=== PATIENT | male | born 1970 | race Caucasian/White ===

== ENCOUNTER 2022-07-08 10:55 | Inpatient (IN) | payer MEDICARE, OTHER ==
[2022-07-08] MEDS ORDERED: Acetaminophen 500 MG Tab PO ONE (11:22)
[2022-07-08 11:36] LABS: ESTIMATED GFR 61 mL/min (>60)
[2022-07-08] MEDS ORDERED: VANCOmycin 1 GM/200 ML 1 GM in Premix Bag 1 BAG IV ONE (11:50)
[2022-07-08] MEDS ORDERED: Piperacillin/Tazobactam 4.5 GM in Sodium Chloride 0.9% 100 ML IV STA (11:51)
[2022-07-08] MEDS: Sodium Chloride 0.9% 10 ML Syringe FLUSH PRN (12:10)
[2022-07-08] MEDS: Sodium Chloride 0.9% 1,000 ML IV SCH ×3 (12:15→16:00)
[2022-07-08] MEDS ORDERED: Ondansetron 4 MG/2 ML SDV IV PRN (15:42)
[2022-07-08] MEDS ORDERED: 50% Dextrose in Water 50 ML Syringe IVPUSH PRN (15:55)
[2022-07-08] MEDS ORDERED: Glucagon,Human Recombinant 1 MG Vial IM PRN (15:55)
[2022-07-08] MEDS ORDERED: Cyanocobalamin (Vitamin B12) 1,000 MCG/ML SDV SUBCUT SCH (16:00)
[2022-07-08] MEDS ORDERED: Piperacillin/Tazobactam 4.5 GM in Sodium Chloride 0.9% 100 ML IV SCH ×4 (17:00)
[2022-07-08] MEDS: Piperacillin/Tazobactam 4.5 GM in Sodium Chloride 0.9% 100 ML IV SCH ×2 (18:12→22:00)
[2022-07-08] MEDS: Insulin Lispro 100 Unit/ML 3 ML KwikPen SUBCUT SCH (18:19)
[2022-07-08] MEDS: Pantoprazole 40 MG Tab.CR PO SCH (18:24)
[2022-07-08] MEDS: Enoxaparin 40 MG/0.4 ML Syringe SUBCUT SCH (18:24)
[2022-07-08] MEDS: Acetaminophen 325 MG Tab PO PRN (19:28)
[2022-07-08] MEDS ORDERED: Sodium Chloride 0.9% 500 ML IV ONE (19:40)
[2022-07-08] MEDS ORDERED: Naproxen 500 MG Tab PO SCH (21:00)
[2022-07-08] MEDS: Ketorolac 30 MG/ML SDV IVPUSH PRN (21:03)
[2022-07-08] MEDS: Amitriptyline 25 MG Tab PO SCH (21:31)
[2022-07-08] MEDS: Gabapentin 600 MG Tab PO SCH (21:40)
[2022-07-08] MEDS: ClonazePAM 1 MG Tab PO SCH (21:40)
[2022-07-08] MEDS ORDERED: Sodium Chloride 0.9% 1,000 ML IV ONE (23:05)
[2022-07-09] MEDS: Sodium Chloride 0.9% 1,000 ML IV SCH ×3 (00:08→16:30)
[2022-07-09] MEDS ORDERED: VANCOmycin 1 GM/200 ML 1 GM in Premix Bag 1 BAG IV SCH (02:00)
[2022-07-09] MEDS: VANCOmycin 1 GM/200 ML 1 GM in Premix Bag 1 BAG IV SCH ×2 (02:37→13:59)
[2022-07-09] MEDS: Piperacillin/Tazobactam 4.5 GM in Sodium Chloride 0.9% 100 ML IV SCH ×4 (05:01→22:34)
[2022-07-09] MEDS: Pantoprazole 40 MG Tab.CR PO SCH ×2 (06:35→17:53)
[2022-07-09] MEDS: Levothyroxine 50 MCG Tab PO SCH (06:35)
[2022-07-09 07:06] LABS: ESTIMATED GFR 56 mL/min (>60)
[2022-07-09] MEDS: PALIPERIDONE 6 MG PO SCH ×2 (08:57→20:30)
[2022-07-09] MEDS ORDERED: Aspirin 81 MG Tab.EC PO SCH (09:00)
[2022-07-09] MEDS: Insulin Lispro 100 Unit/ML 3 ML KwikPen SUBCUT SCH ×3 (09:00→17:36)
[2022-07-09] MEDS: Bacitracin Oint 28.35 GM Tube TOP SCH (09:11)
[2022-07-09] MEDS: Tamsulosin 0.4 MG Cap.ER PO SCH ×2 (09:14→20:30)
[2022-07-09] MEDS: Venlafaxine 150 MG Cap.ER PO SCH (09:14)
[2022-07-09] MEDS: Allopurinol 100 MG Tab PO SCH (09:15)
[2022-07-09] MEDS: ClonazePAM 1 MG Tab PO SCH ×2 (09:23→20:28)
[2022-07-09] MEDS: Gabapentin 600 MG Tab PO SCH ×3 (09:23→20:29)
[2022-07-09] MEDS: Acetaminophen 325 MG Tab PO PRN ×3 (11:37→20:29)
[2022-07-09] MEDS: Ketorolac 30 MG/ML SDV IVPUSH PRN ×2 (14:39→22:32)
[2022-07-09] MEDS: Sodium Chloride 0.9% 10 ML Syringe FLUSH PRN (14:40)
[2022-07-09] MEDS: Metoprolol Succinate 25 MG Tab.ER PO SCH (15:51)
[2022-07-09] MEDS: Enoxaparin 40 MG/0.4 ML Syringe SUBCUT SCH (16:47)
[2022-07-09] MEDS: Amitriptyline 25 MG Tab PO SCH (20:30)
[2022-07-10] MEDS: Sodium Chloride 0.9% 1,000 ML IV SCH ×2 (00:28→08:36)
[2022-07-10] MEDS: Acetaminophen 325 MG Tab PO PRN ×3 (00:59→20:46)
[2022-07-10] MEDS: VANCOmycin 1 GM/200 ML 1 GM in Premix Bag 1 BAG IV SCH (01:00)
[2022-07-10] MEDS: Piperacillin/Tazobactam 4.5 GM in Sodium Chloride 0.9% 100 ML IV SCH ×4 (04:00→22:16)
[2022-07-10] MEDS: Pantoprazole 40 MG Tab.CR PO SCH ×2 (06:30→16:52)
[2022-07-10] MEDS: Levothyroxine 50 MCG Tab PO SCH (06:30)
[2022-07-10 06:38] LABS: ESTIMATED GFR 67 mL/min (>60)
[2022-07-10] MEDS: Insulin Lispro 100 Unit/ML 3 ML KwikPen SUBCUT SCH ×3 (08:39→17:07)
[2022-07-10] MEDS: Venlafaxine 150 MG Cap.ER PO SCH (08:46)
[2022-07-10] MEDS: Bacitracin Oint 28.35 GM Tube TOP SCH (08:46)
[2022-07-10] MEDS: Tamsulosin 0.4 MG Cap.ER PO SCH ×2 (08:47→20:45)
[2022-07-10] MEDS: Metoprolol Succinate 25 MG Tab.ER PO SCH (08:47)
[2022-07-10] MEDS: Gabapentin 600 MG Tab PO SCH ×3 (08:47→20:45)
[2022-07-10] MEDS: ClonazePAM 1 MG Tab PO SCH ×2 (08:47→20:45)
[2022-07-10] MEDS: Allopurinol 100 MG Tab PO SCH (08:50)
[2022-07-10] MEDS: Ketorolac 30 MG/ML SDV IVPUSH PRN (12:47)
[2022-07-10] MEDS ORDERED: Metoprolol Succinate 25 MG Tab.ER PO ONE (12:55)
[2022-07-10] MEDS: Sodium Chloride 0.9% 10 ML Syringe FLUSH PRN ×3 (15:10→23:00)
[2022-07-10] MEDS: Enoxaparin 40 MG/0.4 ML Syringe SUBCUT SCH (16:51)
[2022-07-10] MEDS: Amitriptyline 25 MG Tab PO SCH (20:44)
[2022-07-10] MEDS: PALIPERIDONE 6 MG PO SCH (20:45)
[2022-07-10] MEDS ORDERED: cefTRIAXone 1 GM Vial IVPUSH SCH (22:45)
[2022-07-11] MEDS: Levothyroxine 50 MCG Tab PO SCH (06:39)
[2022-07-11] MEDS: Pantoprazole 40 MG Tab.CR PO SCH ×2 (06:39→16:42)
[2022-07-11 06:52] LABS: ESTIMATED GFR 92 mL/min (>60)
[2022-07-11] MEDS: Insulin Lispro 100 Unit/ML 3 ML KwikPen SUBCUT SCH ×3 (08:22→18:36)
[2022-07-11] MEDS: Bacitracin Oint 28.35 GM Tube TOP SCH (08:26)
[2022-07-11] MEDS: Gabapentin 600 MG Tab PO SCH ×3 (08:27→20:11)
[2022-07-11] MEDS: Tamsulosin 0.4 MG Cap.ER PO SCH ×2 (08:27→20:11)
[2022-07-11] MEDS: ClonazePAM 1 MG Tab PO SCH ×2 (08:27→20:11)
[2022-07-11] MEDS: Metoprolol Succinate 50 MG Tab.ER PO SCH (08:27)
[2022-07-11] MEDS: Allopurinol 100 MG Tab PO SCH (08:28)
[2022-07-11] MEDS: Venlafaxine 150 MG Cap.ER PO SCH (08:30)
[2022-07-11] MEDS: Sodium Chloride 0.9% 10 ML Syringe FLUSH PRN (10:26)
[2022-07-11] MEDS: Ketorolac 30 MG/ML SDV IVPUSH PRN (16:32)
[2022-07-11] MEDS: Acetaminophen 325 MG Tab PO PRN (16:37)
[2022-07-11] MEDS: Enoxaparin 40 MG/0.4 ML Syringe SUBCUT SCH (16:43)
[2022-07-11] MEDS: Amitriptyline 25 MG Tab PO SCH (20:10)
[2022-07-11] MEDS: PALIPERIDONE 6 MG PO SCH (20:11)
[2022-07-12] MEDS: Sodium Chloride 0.9% 10 ML Syringe FLUSH PRN ×2 (02:09→10:11)
[2022-07-12] MEDS: Levothyroxine 50 MCG Tab PO SCH (06:30)
[2022-07-12] MEDS: Pantoprazole 40 MG Tab.CR PO SCH ×2 (07:01→17:54)
[2022-07-12] MEDS: Insulin Lispro 100 Unit/ML 3 ML KwikPen SUBCUT SCH ×2 (08:47→12:28)
[2022-07-12] MEDS: ClonazePAM 1 MG Tab PO SCH ×2 (08:53→20:04)
[2022-07-12] MEDS: Metoprolol Succinate 50 MG Tab.ER PO SCH (08:54)
[2022-07-12] MEDS: Venlafaxine 150 MG Cap.ER PO SCH (08:54)
[2022-07-12] MEDS: Tamsulosin 0.4 MG Cap.ER PO SCH ×2 (08:54→20:04)
[2022-07-12] MEDS: Gabapentin 600 MG Tab PO SCH ×3 (08:54→20:04)
[2022-07-12] MEDS: Bacitracin Oint 28.35 GM Tube TOP SCH (08:56)
[2022-07-12] MEDS: Allopurinol 100 MG Tab PO SCH (08:56)
[2022-07-12] MEDS: Enoxaparin 40 MG/0.4 ML Syringe SUBCUT SCH (16:34)
[2022-07-12] MEDS: Amitriptyline 25 MG Tab PO SCH (20:03)
[2022-07-12] MEDS: Metoprolol Succinate 100 MG Tab.ER PO SCH (20:04)
[2022-07-12] MEDS: PALIPERIDONE 6 MG PO SCH (20:04)
[2022-07-12] MEDS: Acetaminophen 325 MG Tab PO PRN (23:00)
[2022-07-13] MEDS: Sodium Chloride 0.9% 10 ML Syringe FLUSH PRN ×3 (02:30→17:46)
[2022-07-13] MEDS: Pantoprazole 40 MG Tab.CR PO SCH ×2 (06:52→17:15)
[2022-07-13] MEDS: Levothyroxine 50 MCG Tab PO SCH (06:53)
[2022-07-13] MEDS: Bacitracin Oint 28.35 GM Tube TOP SCH (08:36)
[2022-07-13] MEDS: Venlafaxine 150 MG Cap.ER PO SCH (08:36)
[2022-07-13] MEDS: ClonazePAM 1 MG Tab PO SCH ×2 (08:36→20:33)
[2022-07-13] MEDS: Tamsulosin 0.4 MG Cap.ER PO SCH ×2 (08:36→20:34)
[2022-07-13] MEDS: Gabapentin 600 MG Tab PO SCH ×3 (08:37→20:33)
[2022-07-13] MEDS: Allopurinol 100 MG Tab PO SCH (08:37)
[2022-07-13] MEDS ORDERED: CLOBETASOL 0.05% TOP SCH (10:00)
[2022-07-13 10:07] LABS: ESTIMATED GFR 92 mL/min (>60)
[2022-07-13] MEDS: Clobetasol 0.05% Crm 15 GM Tube TOP SCH ×2 (15:38→20:33)
[2022-07-13] MEDS: Enoxaparin 40 MG/0.4 ML Syringe SUBCUT SCH (16:44)
[2022-07-13] MEDS: Metoprolol Succinate 100 MG Tab.ER PO SCH (20:33)
[2022-07-13] MEDS: Amitriptyline 25 MG Tab PO SCH (20:33)
[2022-07-13] MEDS: PALIPERIDONE 6 MG PO SCH (20:34)
[2022-07-13] MEDS: Acetaminophen 325 MG Tab PO PRN (21:34)
[2022-07-14] MEDS: Sodium Chloride 0.9% 10 ML Syringe FLUSH PRN (02:45)
[2022-07-14] MEDS: Levothyroxine 50 MCG Tab PO SCH (05:31)
[2022-07-14] MEDS: Pantoprazole 40 MG Tab.CR PO SCH ×2 (06:32→16:35)
[2022-07-14] MEDS: Bacitracin Oint 28.35 GM Tube TOP SCH (08:54)
[2022-07-14] MEDS: Clobetasol 0.05% Crm 15 GM Tube TOP SCH ×2 (08:55→20:27)
[2022-07-14] MEDS: Venlafaxine 150 MG Cap.ER PO SCH (09:03)
[2022-07-14] MEDS: Allopurinol 100 MG Tab PO SCH (09:03)
[2022-07-14] MEDS: Tamsulosin 0.4 MG Cap.ER PO SCH ×2 (09:04→20:26)
[2022-07-14] MEDS: ClonazePAM 1 MG Tab PO SCH ×2 (09:07→20:39)
[2022-07-14] MEDS: Gabapentin 600 MG Tab PO SCH ×3 (09:07→20:26)
[2022-07-14] MEDS: Enoxaparin 40 MG/0.4 ML Syringe SUBCUT SCH (16:19)
[2022-07-14] MEDS: Acetaminophen 325 MG Tab PO PRN (17:42)
[2022-07-14] MEDS: Amitriptyline 25 MG Tab PO SCH (20:26)
[2022-07-14] MEDS: PALIPERIDONE 6 MG PO SCH (20:27)
[2022-07-14] MEDS: Metoprolol Succinate 100 MG Tab.ER PO SCH (20:28)
[2022-07-15] MEDS: Sodium Chloride 0.9% 10 ML Syringe FLUSH PRN ×3 (01:16→18:51)
[2022-07-15] MEDS: Levothyroxine 50 MCG Tab PO SCH (05:41)
[2022-07-15] MEDS: Pantoprazole 40 MG Tab.CR PO SCH ×2 (06:37→18:11)
[2022-07-15] MEDS: Gabapentin 600 MG Tab PO SCH ×3 (08:50→21:09)
[2022-07-15] MEDS: ClonazePAM 1 MG Tab PO SCH ×2 (08:50→21:09)
[2022-07-15] MEDS: Bacitracin Oint 28.35 GM Tube TOP SCH (08:55)
[2022-07-15] MEDS: Clobetasol 0.05% Crm 15 GM Tube TOP SCH ×2 (08:58→20:47)
[2022-07-15] MEDS: Allopurinol 100 MG Tab PO SCH (08:59)
[2022-07-15] MEDS: Tamsulosin 0.4 MG Cap.ER PO SCH ×2 (08:59→20:53)
[2022-07-15] MEDS: Venlafaxine 150 MG Cap.ER PO SCH (09:00)
[2022-07-15] MEDS: Enoxaparin 40 MG/0.4 ML Syringe SUBCUT SCH (15:15)
[2022-07-15] MEDS: Amitriptyline 25 MG Tab PO SCH (20:51)
[2022-07-15] MEDS: PALIPERIDONE 6 MG PO SCH (20:54)
[2022-07-15] MEDS: Metoprolol Succinate 100 MG Tab.ER PO SCH (21:01)
[2022-07-16] MEDS: Levothyroxine 50 MCG Tab PO SCH (06:09)
[2022-07-16] MEDS: Pantoprazole 40 MG Tab.CR PO SCH (06:50)
[2022-07-16] MEDS: Bacitracin Oint 28.35 GM Tube TOP SCH (08:42)
[2022-07-16] MEDS: Clobetasol 0.05% Crm 15 GM Tube TOP SCH (08:43)
[2022-07-16] MEDS: Venlafaxine 150 MG Cap.ER PO SCH (08:44)
[2022-07-16] MEDS: Allopurinol 100 MG Tab PO SCH (08:44)
[2022-07-16] MEDS: Tamsulosin 0.4 MG Cap.ER PO SCH (08:45)
[2022-07-16] MEDS: ClonazePAM 1 MG Tab PO SCH (08:51)
[2022-07-16] MEDS: Gabapentin 600 MG Tab PO SCH (08:51)
[2022-07-16] MEDS: Sodium Chloride 0.9% 10 ML Syringe FLUSH PRN (09:37)
== END 2022-07-16 12:55 | disposition home health service (06) | DRG 872 ==
LOC: FB.ED 10:55 → FB.MS 15:52 → UNDOADMIN 15:52
PROVIDERS: ADMIT Emergency Medicine; ATTEND Student in an Organized Health Care Education/Training Program
DX: A41.9 Sepsis, unspecified organism (principal); A41.51 Sepsis due to Escherichia coli [E. coli]; N39.0 Urinary tract infection, site not specified; Z68.41 Body mass index [BMI] 40.0-44.9, adult; Z79.84 Long term (current) use of oral hypoglycemic drugs; E11.42 Type 2 diabetes mellitus with diabetic polyneuropathy; I10 Essential (primary) hypertension; K21.9 Gastro-esophageal reflux disease without esophagitis; F41.8 Other specified anxiety disorders; Z20.822 Contact with and (suspected) exposure to COVID-19; F79 Unspecified intellectual disabilities; L23.9 Allergic contact dermatitis, unspecified cause; E66.01 Morbid (severe) obesity due to excess calories; I95.9 Hypotension, unspecified; Z79.890 Hormone replacement therapy; Z79.899 Other long term (current) drug therapy; Z79.4 Long term (current) use of insulin
CPT/HCPCS: 36415; 71045; 80053; 81001; 83605 ×2; 85025; 86140; 87040 ×2; 87086; 87088; 87186 ×2; 96365; 96366; 96367; 99284; 99285; A9270; J2543; J3370; J3490; J7030 ×2; U0002; 51701; 51702; 76870; 80048; 80202; 82947; 83880; 84484; 93005; 97116-GP; 97162-GP; 97166-GO; 97530-GO; 97535-GO; 99223; 99233; 99239; J0690; J0696; J1650; J1885; J7040

== ENCOUNTER 2023-09-26 17:34 | Emergency (ER) | payer MEDICARE, MEDICAID ==
[2023-09-26 18:23] LABS: BASOPHILS ABSOLUTE AUTO 0.1 x10-3/uL (0.0-0.3); BASOPHILS PERCENT AUTO 0.9 % (0.3-3.8); EOSINOPHILS ABSOLUTE AUTO 0.2 x10-3/uL (0.0-0.6); EOSINOPHILS PERCENT AUTO 1.6 % (0.1-6.8); HEMATOCRIT 41.4 % (38.3-50.1); HEMOGLOBIN 13.5 g/dL (12.9-17.7); LYMPHOCYTES ABSOLUTE AUTO 2.1 x10-3/uL (0.5-4.5); LYMPHOCYTES PERCENT AUTO 19.3 % (15.8-45.3); MEAN CORPUSCULAR HEMOGLOBIN 25.9 pg (27.0-33.3); MEAN CORPUSCULAR HGB CONC 32.6 g/dL (28.7-35.3); MEAN CORPUSCULAR VOLUME 79.7 fL (80.8-98.7); MEAN PLATELET VOLUME 9.6 fL (6.7-11.0); MONOCYTES ABSOLUTE AUTO 0.7 x10-3/uL (0.0-1.2); MONOCYTES PERCENT AUTO 6.2 % (5.5-15.2); PLATELET COUNT,PLT 305 x10(3)uL (117-477); RED CELL DISTRIBUTION WIDTH 15.8 % (12.4-15.0); WHITE BLOOD CELL COUNT,WBC 11.1 x10-3/uL (3.2-10.1)
[2023-09-26 18:25] LABS: CALCIUM 9.2 mg/dL (8.6-10.2); CARBON DIOXIDE,CO2 28 mmol/L (21-32); CHLORIDE,CL 101 mmol/L (100-110); CREATININE 1.2 mg/dL (0.70-1.30); ESTIMATED GFR 73 mL/min (>60); GLUCOSE RANDOM 160 mg/dL (80-116); POTASSIUM,K 4.3 mmol/L (3.5-5.3); SODIUM,NA 137 mmol/L (135-145)
[2023-09-26 18:29] LABS: BILIRUBIN,URINE NEGATIVE (NEGATIVE); GLUCOSE,URINE NORMAL (NORMAL); KETONES,URINE NEGATIVE (NEGATIVE); LEUKOCYTE ESTERASE,URINE NEGATIVE (NEGATIVE); NITRITE,URINE NEGATIVE (NEGATIVE); OCCULT BLOOD,URINE NEGATIVE (NEGATIVE); PROTEIN,URINE NEGATIVE (NEGATIVE); UROBILINOGEN,URINE NORMAL (NEGATIVE)
[2023-09-26 18:31] LABS: A/G RATIO 0.9; ALANINE AMINOTRANSFERASE,ALT 49 U/L (12-36); ALBUMIN 3.7 g/dL (3.5-5.2); ALKALINE PHOSPHATASE 105 IU/L (56-112); ASPARTATE AMNIOTRANSFERASE,AST 22 IU/L (5-25); BILIRUBIN TOTAL 0.5 mg/dL (0.1-1.3)
[2023-09-26 18:32] LABS: AMPHETAMINES SCREEN, URINE NEGATIVE (NEGATIVE); BARBITURATE SCREEN,URINE NEGATIVE (NEGATIVE); BENZODIAZEPINES SCREEN,URINE NEGATIVE (NEGATIVE); METHADONE SCREEN, URINE NEGATIVE (NEGATIVE); METHAMPHETAMINE SCREEN, URINE NEGATIVE (NEGATIVE); OXYCODONE SCREEN,URINE NEGATIVE (NEGATIVE); THC SCREEN,URINE NEGATIVE (NEGATIVE)
[2023-09-26 18:33] LABS: BUPRENORPHINE SCREEN,URINE NEGATIVE (NEGATIVE)
[2023-09-26 18:41] LABS: TSH ULTRASENSITIVE 3.05 IU/mL (0.36-3.74)
[2023-09-26 18:45] LABS: APPEARANCE,URINE CLEAR (CLEAR); BACTERIA,URINE FEW (NS); COLOR,URINE YELLOW (YELLOW); RBC,URINE 0-5 (0-5); SQUAMOUS EPITHELIAL CELLS,UR FEW (NS,R,O); WBC,URINE 0-5 (0-5)
[2023-09-26 18:46] LABS: ETHANOL BLOOD MEDICAL < 0.03 % (<0.03)
[2023-09-27] MEDS ORDERED: Cephalexin 500 MG Cap PO ONE (00:36)
[2023-09-28 07:45] LABS: BLOOD UREA NITROGEN,BUN 14 mg/dL (7-18); BUN/CREATININE RATIO 11.7 (9-20)
[2023-09-29 16:15] LABS: THYROXINE FREE 1.4 ng/dL (0.9-1.7)
== END 2023-09-27 02:33 | disposition home or self-care (01) ==
LOC: FB.ED 17:34
DX: F25.9 Schizoaffective disorder, unspecified (principal); F60.0 Paranoid personality disorder; F41.1 Generalized anxiety disorder; F32.A Depression, unspecified; I10 Essential (primary) hypertension; K21.9 Gastro-esophageal reflux disease without esophagitis; E78.00 Pure hypercholesterolemia, unspecified; E11.40 Type 2 diabetes mellitus with diabetic neuropathy, unspecified; E66.9 Obesity, unspecified; Z79.84 Long term (current) use of oral hypoglycemic drugs; Z79.899 Other long term (current) drug therapy
CPT/HCPCS: 36415; 73630-RT; 80053; 80307; 81001; 84439; 84443; 85025; 86140; 99283; 99285; A9270-GY

== ENCOUNTER 2024-08-22 12:10 | Inpatient (IN) | payer MEDICAID, MEDICARE ==
[2024-08-22] MEDS ORDERED: Sodium Chloride 0.9% 10 ML Syringe FLUSH PRN (12:24)
[2024-08-22] MEDS: Sodium Chloride 0.9% 1,000 ML IV SCH ×5 (12:30→22:15)
[2024-08-22 12:46] LABS: BASOPHILS PERCENT AUTO 0.5 % (0.3-3.8); EOSINOPHILS ABSOLUTE AUTO 0.1 x10-3/uL (0.0-0.6); EOSINOPHILS PERCENT AUTO 0.9 % (0.1-6.8); HEMATOCRIT 38.1 % (38.3-50.1); HEMOGLOBIN 12.8 g/dL (12.9-17.7); LYMPHOCYTES ABSOLUTE AUTO 1.2 x10-3/uL (0.5-4.5); LYMPHOCYTES PERCENT AUTO 12.2 % (15.8-45.3); MEAN CORPUSCULAR HEMOGLOBIN 26.7 pg (27.0-33.3); MEAN CORPUSCULAR HGB CONC 33.6 g/dL (28.7-35.3); MEAN CORPUSCULAR VOLUME 79.6 fL (80.8-98.7); MEAN PLATELET VOLUME 10.4 fL (6.7-11.0); MONOCYTES ABSOLUTE AUTO 0.6 x10-3/uL (0.0-1.2); MONOCYTES PERCENT AUTO 5.6 % (5.5-15.2); NEUTROPHILS ABSOLUTE AUTO 8.2 x10-3/uL (1.7-6.9); NEUTROPHILS PERCENT AUTO 80.8 % (40.3-71.8); PLATELET COUNT,PLT 216 x10(3)uL (117-477); RED BLOOD CELL COUNT 4.79 x10(6)uL (3.90-5.90); RED CELL DISTRIBUTION WIDTH 15.1 % (12.4-15.0); WHITE BLOOD CELL COUNT,WBC 10.1 x10-3/uL (3.2-10.1)
[2024-08-22] MEDS: Lidocaine 2% HCl 6 ML Jel ONE (12:48)
[2024-08-22 12:53] LABS: BASE EXCESS VENOUS,POC -6 mmol/L (-2 - 3+); PCO2 VENOUS,POC 24 mmHg (41-51); PH VENOUS,POC 7.44 pH Units (7.32-7.43)
[2024-08-22 12:57] LABS: BILIRUBIN,URINE NEGATIVE (NEGATIVE); GLUCOSE,URINE >1000 mg/dL (NORMAL); KETONES,URINE 50 mg/dL (NEGATIVE); LEUKOCYTE ESTERASE,URINE NEGATIVE (NEGATIVE); NITRITE,URINE NEGATIVE (NEGATIVE); OCCULT BLOOD,URINE NEGATIVE (NEGATIVE); PROTEIN,URINE NEGATIVE (NEGATIVE); UROBILINOGEN,URINE NORMAL (NEGATIVE)
[2024-08-22 13:03] LABS: LACTIC ACID 1.4 mmol/L (0.4-2.0)
[2024-08-22 13:18] LABS: A/G RATIO 0.9; BUN/CREATININE RATIO 12.5 (9-20); EST CRCL DRUG DOSING (CG) 79.04 mL/min; ESTIMATED GFR 73 mL/min (>60)
[2024-08-22 13:38] LABS: HEMOGLOBIN A1C > 14 % (<5.7)
[2024-08-22 13:43] LABS: ALBUMIN 3.4 g/dL (3.5-5.2); ALKALINE PHOSPHATASE 130 IU/L (56-112); ASPARTATE AMNIOTRANSFERASE,AST 23 IU/L (5-25); BILIRUBIN TOTAL 0.6 mg/dL (0.1-1.3); BLOOD UREA NITROGEN,BUN 15 mg/dL (7-18); CALCIUM 8.5 mg/dL (8.6-10.2); CARBON DIOXIDE,CO2 20 mmol/L (21-32); CREATININE 1.2 mg/dL (0.70-1.30); POTASSIUM,K 4.3 mmol/L (3.5-5.3)
[2024-08-22 13:46] LABS: CHLORIDE,CL 83 mmol/L (100-110); SODIUM,NA 118 mmol/L (135-145)
[2024-08-22 13:53] LABS: ALANINE AMINOTRANSFERASE,ALT 46 U/L (12-36); GLUCOSE RANDOM 582 mg/dL (80-116)
[2024-08-22] MEDS: Insulin Regular in 0.9 % NACL 100 ML IV SCH (14:10)
[2024-08-22] MEDS: Insulin Regular, Human 100 Units/ML 10 ML Vial IV ONE (14:11)
[2024-08-22 14:23] LABS: APPEARANCE,URINE CLEAR (CLEAR); BACTERIA,URINE NOT SEEN (NS); COLOR,URINE YELLOW (YELLOW); RBC,URINE 0-5 (0-5); SQUAMOUS EPITHELIAL CELLS,UR RARE (NS,R,O); WBC,URINE 0-5 (0-5)
[2024-08-22 15:54] LABS: BLOOD UREA NITROGEN,BUN 14 mg/dL (7-18); BUN/CREATININE RATIO 12.7 (9-20); CALCIUM 7.8 mg/dL (8.6-10.2); CARBON DIOXIDE,CO2 24 mmol/L (21-32); CHLORIDE,CL 98 mmol/L (100-110); CREATININE 1.1 mg/dL (0.70-1.30); EST CRCL DRUG DOSING (CG) 86.22 mL/min; ESTIMATED GFR 81 mL/min (>60); GLUCOSE RANDOM 216 mg/dL (80-116); POTASSIUM,K 3.3 mmol/L (3.5-5.3); SODIUM,NA 132 mmol/L (135-145)
[2024-08-22] MEDS ORDERED: Dextrose 5%-Lactated Ringers 1,000 ML IV SCH (16:30)
[2024-08-22] MEDS: Potassium Chloride 20 MEQ Tab.ER PO SCH (16:56)
[2024-08-22] MEDS: Dextrose 5%-Lactated Ringers 1,000 ML IV SCH (17:56)
[2024-08-22] MEDS ORDERED: Glucagon,Human Recombinant 1 MG Vial IM PRN (18:24)
[2024-08-22] MEDS ORDERED: 50% Dextrose in Water 50 ML Syringe IVPUSH PRN (18:24)
[2024-08-22] MEDS ORDERED: Potassium Chloride 20 MEQ Tab.ER PO SCH (21:00)
[2024-08-22] MEDS ORDERED: Insulin Glargine,Human Rec. Analog 100 Units/ML 3 ML Pen SUBCUT ONE (21:17)
[2024-08-22] MEDS ORDERED: Insulin Lispro 100 Unit/ML 3 ML KwikPen SUBCUT ONE (21:18)
[2024-08-22] MEDS: Insulin Lispro 100 Unit/ML 3 ML KwikPen SUBCUT STA (21:20)
[2024-08-22] MEDS: Insulin Glargine,Human Rec. Analog 100 Units/ML 3 ML Pen SUBCUT SCH (21:20)
[2024-08-22] MEDS: Betamethasone Dipropionate/Clotrimazole 0.05-1% Crm 15 GM Tube TOP SCH (21:38)
[2024-08-23 06:40] LABS: BLOOD UREA NITROGEN,BUN 10 mg/dL (7-18); BUN/CREATININE RATIO 11.1 (9-20); CALCIUM 7.9 mg/dL (8.6-10.2); CARBON DIOXIDE,CO2 22 mmol/L (21-32); CHLORIDE,CL 102 mmol/L (100-110); CREATININE 0.9 mg/dL (0.70-1.30); EST CRCL DRUG DOSING (CG) 105.38 mL/min; ESTIMATED GFR 103 mL/min (>60); GLUCOSE RANDOM 254 mg/dL (80-116); POTASSIUM,K 4.7 mmol/L (3.5-5.3); SODIUM,NA 134 mmol/L (135-145)
[2024-08-23] MEDS ORDERED: Insulin Regular, Human 100 Units/ML 10 ML Vial SUBCUT SCH (07:30)
[2024-08-23] MEDS: Insulin Lispro 100 Unit/ML 3 ML KwikPen SUBCUT SCH ×2 (08:06→17:44)
[2024-08-23] MEDS: Acetaminophen 325 MG Tab PO PRN (09:46)
[2024-08-23] MEDS: FLU (Fluarix Triv) TS24-25(6MOS UP)/PF 45 MCG/0.5 ML Syringe IM ONE (13:29)
[2024-08-23] MEDS ORDERED: Cyanocobalamin (Vitamin B12) 1,000 MCG/ML SDV IM SCH (15:45)
[2024-08-23] MEDS: Primidone 50 MG Tab PO SCH (17:03)
[2024-08-23] MEDS: Pantoprazole 40 MG Tab.CR PO SCH (17:03)
[2024-08-23] MEDS: Enoxaparin 40 MG/0.4 ML Syringe SUBCUT SCH (17:05)
[2024-08-23] MEDS: Gabapentin 300 MG Cap PO SCH (21:09)
[2024-08-23] MEDS: atorvaSTATin 10 MG Tab PO SCH (21:09)
[2024-08-24] MEDS: Pantoprazole 40 MG Tab.CR PO SCH (05:41)
[2024-08-24 06:35] LABS: BLOOD UREA NITROGEN,BUN 8 mg/dL (7-18); CALCIUM 8.3 mg/dL (8.6-10.2); CARBON DIOXIDE,CO2 22 mmol/L (21-32); CHLORIDE,CL 99 mmol/L (100-110); EST CRCL DRUG DOSING (CG) 94.84 mL/min; ESTIMATED GFR 91 mL/min (>60); GLUCOSE RANDOM 249 mg/dL (80-116); POTASSIUM,K 4.1 mmol/L (3.5-5.3); SODIUM,NA 134 mmol/L (135-145)
[2024-08-24 06:46] LABS: BASOPHILS ABSOLUTE AUTO 0.1 x10-3/uL (0.0-0.3); BASOPHILS PERCENT AUTO 0.7 % (0.3-3.8); EOSINOPHILS ABSOLUTE AUTO 0.1 x10-3/uL (0.0-0.6); EOSINOPHILS PERCENT AUTO 1.5 % (0.1-6.8); HEMATOCRIT 37.6 % (38.3-50.1); HEMOGLOBIN 12.5 g/dL (12.9-17.7); LYMPHOCYTES ABSOLUTE AUTO 1.3 x10-3/uL (0.5-4.5); LYMPHOCYTES PERCENT AUTO 17.8 % (15.8-45.3); MEAN CORPUSCULAR HEMOGLOBIN 26.9 pg (27.0-33.3); MEAN CORPUSCULAR HGB CONC 33.1 g/dL (28.7-35.3); MEAN CORPUSCULAR VOLUME 81.3 fL (80.8-98.7); MEAN PLATELET VOLUME 10.6 fL (6.7-11.0); MONOCYTES ABSOLUTE AUTO 0.4 x10-3/uL (0.0-1.2); MONOCYTES PERCENT AUTO 5.6 % (5.5-15.2); NEUTROPHILS ABSOLUTE AUTO 5.4 x10-3/uL (1.7-6.9); NEUTROPHILS PERCENT AUTO 74.4 % (40.3-71.8); PLATELET COUNT,PLT 223 x10(3)uL (117-477); RED BLOOD CELL COUNT 4.63 x10(6)uL (3.90-5.90); RED CELL DISTRIBUTION WIDTH 15.5 % (12.4-15.0); WHITE BLOOD CELL COUNT,WBC 7.2 x10-3/uL (3.2-10.1)
[2024-08-24] MEDS: Oxybutynin 5 MG Tab.ER PO SCH (08:32)
[2024-08-24] MEDS: Levothyroxine 50 MCG Tab PO SCH (08:40)
[2024-08-24] MEDS: Lisinopril 20 MG Tab PO SCH (11:43)
[2024-08-24] MEDS: Metoprolol Succinate 100 MG Tab.ER PO SCH (11:43)
[2024-08-24] MEDS: Allopurinol 100 MG Tab PO SCH (11:43)
[2024-08-24] MEDS: Venlafaxine 150 MG Cap.ER PO SCH (11:43)
[2024-08-24] MEDS: Nystatin Topical Powder 15 GM Bottle TOP SCH (13:35)
[2024-08-30] MEDS ORDERED: Ergocalciferol (Vitamin D2) 1.25 MG Cap PO SCH (08:00)
== END 2024-08-24 15:20 | disposition home health service (06) | DRG 639 ==
LOC: FB.ED 12:10 → FB.MS 18:50
PROVIDERS: ADMIT Family Medicine; ATTEND Internal Medicine
DX: E11.10 Type 2 diabetes mellitus with ketoacidosis without coma (principal); I10 Essential (primary) hypertension; E11.00 Type 2 diabetes mellitus with hyperosmolarity without nonketotic hyperglycemic-hyperosmolar coma (NKHHC); E66.9 Obesity, unspecified; E03.9 Hypothyroidism, unspecified; M10.9 Gout, unspecified; K21.9 Gastro-esophageal reflux disease without esophagitis; E78.00 Pure hypercholesterolemia, unspecified; F41.8 Other specified anxiety disorders; E66.01 Morbid (severe) obesity due to excess calories; F20.9 Schizophrenia, unspecified; Z79.84 Long term (current) use of oral hypoglycemic drugs; Z90.49 Acquired absence of other specified parts of digestive tract; Z68.39 Body mass index [BMI] 39.0-39.9, adult; Z98.890 Other specified postprocedural states; Z79.899 Other long term (current) drug therapy; Z79.890 Hormone replacement therapy
CPT/HCPCS: 36415; 80048; 80053; 81001; 82947; 83036; 83605; 83735; 85025; 86140; 90656; 97165-GO; 99222; 99238; 99285; A9270-GY; G0008; J1650; J1815; J1815-GY; J7030; J7121

== ENCOUNTER 2024-08-29 14:41 | Emergency (ER) | payer MEDICARE ==
[2024-08-29 15:20] LABS: BASOPHILS ABSOLUTE AUTO 0.1 x10-3/uL (0.0-0.3); EOSINOPHILS ABSOLUTE AUTO 0.1 x10-3/uL (0.0-0.6); HEMOGLOBIN 13.1 g/dL (12.9-17.7); LYMPHOCYTES ABSOLUTE AUTO 1.6 x10-3/uL (0.5-4.5); MONOCYTES ABSOLUTE AUTO 0.6 x10-3/uL (0.0-1.2); NEUTROPHILS ABSOLUTE AUTO 7.8 x10-3/uL (1.7-6.9); RED CELL DISTRIBUTION WIDTH 15.7 % (12.4-15.0); WHITE BLOOD CELL COUNT,WBC 10.2 x10-3/uL (3.2-10.1)
[2024-08-29 15:21] LABS: BASE EXCESS VENOUS,POC 0 mmol/L (-2 - 3+); PCO2 VENOUS,POC 39 mmHg (41-51)
[2024-08-29 15:22] LABS: BASOPHILS PERCENT AUTO 0.9 % (0.3-3.8); EOSINOPHILS PERCENT AUTO 0.9 % (0.1-6.8); HEMATOCRIT 39.6 % (38.3-50.1); LYMPHOCYTES PERCENT AUTO 15.6 % (15.8-45.3); MEAN CORPUSCULAR HEMOGLOBIN 27.5 pg (27.0-33.3); MEAN CORPUSCULAR VOLUME 83.1 fL (80.8-98.7); MEAN PLATELET VOLUME 11.6 fL (6.7-11.0); MONOCYTES PERCENT AUTO 5.8 % (5.5-15.2); NEUTROPHILS PERCENT AUTO 76.8 % (40.3-71.8); PLATELET COUNT,PLT 269 x10(3)uL (117-477); RED BLOOD CELL COUNT 4.77 x10(6)uL (3.90-5.90)
[2024-08-29 15:38] LABS: ALANINE AMINOTRANSFERASE,ALT 75 U/L (12-36); ALBUMIN 3.5 g/dL (3.5-5.2); ALKALINE PHOSPHATASE 123 IU/L (56-112); ASPARTATE AMNIOTRANSFERASE,AST 40 IU/L (5-25); BILIRUBIN TOTAL 0.3 mg/dL (0.1-1.3); BLOOD UREA NITROGEN,BUN 13 mg/dL (7-18); CALCIUM 8.9 mg/dL (8.6-10.2); CARBON DIOXIDE,CO2 27 mmol/L (21-32); CHLORIDE,CL 93 mmol/L (100-110); CREATININE 1.3 mg/dL (0.70-1.30); EST CRCL DRUG DOSING (CG) 72.96 mL/min; ESTIMATED GFR 66 mL/min (>60); POTASSIUM,K 4.7 mmol/L (3.5-5.3); SODIUM,NA 129 mmol/L (135-145)
[2024-08-29 15:39] LABS: GLUCOSE RANDOM 612 mg/dL (80-116)
[2024-08-29 15:50] LABS: BILIRUBIN,URINE NEGATIVE (NEGATIVE); GLUCOSE,URINE >1000 mg/dL (NORMAL); KETONES,URINE NEGATIVE (NEGATIVE); LEUKOCYTE ESTERASE,URINE NEGATIVE (NEGATIVE); NITRITE,URINE NEGATIVE (NEGATIVE); OCCULT BLOOD,URINE NEGATIVE (NEGATIVE); PROTEIN,URINE NEGATIVE (NEGATIVE); UROBILINOGEN,URINE NORMAL (NEGATIVE)
[2024-08-29 15:55] LABS: APPEARANCE,URINE CLEAR (CLEAR); COLOR,URINE YELLOW (YELLOW)
[2024-08-29] MEDS: Insulin Regular, Human 100 Units/ML 10 ML Vial IV ONE (16:03)
[2024-08-29] MEDS: Insulin Regular, Human 100 Units/ML 10 ML Vial SUBCUT ONE ×3 (16:07→17:41)
[2024-08-29 18:25] LABS: BLOOD UREA NITROGEN,BUN 12 mg/dL (7-18); CALCIUM 8.9 mg/dL (8.6-10.2); CARBON DIOXIDE,CO2 27 mmol/L (21-32); CHLORIDE,CL 96 mmol/L (100-110); CREATININE 1.2 mg/dL (0.70-1.30); EST CRCL DRUG DOSING (CG) 79.04 mL/min; ESTIMATED GFR 73 mL/min (>60); POTASSIUM,K 4.2 mmol/L (3.5-5.3); SODIUM,NA 130 mmol/L (135-145)
[2024-08-29 18:26] LABS: GLUCOSE RANDOM 426 mg/dL (80-116)
[2024-08-29] MEDS: Sodium Chloride 0.9% 1,000 ML IV ONE (18:46)
== END 2024-08-29 20:34 | disposition home or self-care (01) ==
LOC: FB.ED 14:41
DX: E11.65 Type 2 diabetes mellitus with hyperglycemia (principal); E78.00 Pure hypercholesterolemia, unspecified; I10 Essential (primary) hypertension; K21.9 Gastro-esophageal reflux disease without esophagitis; E03.9 Hypothyroidism, unspecified; E66.9 Obesity, unspecified; Z79.899 Other long term (current) drug therapy; Z79.4 Long term (current) use of insulin; Z68.41 Body mass index [BMI] 40.0-44.9, adult
CPT/HCPCS: 36415; 80048; 80053; 81003; 82947; 83690; 85025; 96360; 99284; 99284-25; A9270-GY; J7030

== ENCOUNTER 2024-11-22 14:35 | Emergency (ER) | payer MEDICARE ==
[2024-11-22 15:16] LABS: BLOOD UREA NITROGEN,BUN 13 mg/dL (7-18); BUN/CREATININE RATIO 9.3 (9-20); CALCIUM 9.4 mg/dL (8.6-10.2); CARBON DIOXIDE,CO2 27 mmol/L (21-32); CHLORIDE,CL 102 mmol/L (100-110); CREATININE 1.4 mg/dL (0.70-1.30); EST CRCL DRUG DOSING (CG) 71.76 mL/min; ESTIMATED GFR 60 mL/min (>60); GLUCOSE RANDOM 149 mg/dL (80-116); POTASSIUM,K 4.9 mmol/L (3.5-5.3); SODIUM,NA 140 mmol/L (135-145)
[2024-11-22 15:22] LABS: A/G RATIO 1.1; ALANINE AMINOTRANSFERASE,ALT 47 U/L (12-36); ALBUMIN 3.6 g/dL (3.5-5.2); ALKALINE PHOSPHATASE 106 IU/L (56-112); ASPARTATE AMNIOTRANSFERASE,AST 20 IU/L (5-25); BILIRUBIN TOTAL 0.4 mg/dL (0.1-1.3)
[2024-11-22 15:24] LABS: BASOPHILS ABSOLUTE AUTO 0.1 x10-3/uL (0.0-0.3); BASOPHILS PERCENT AUTO 0.4 % (0.3-3.8); EOSINOPHILS ABSOLUTE AUTO 0.3 x10-3/uL (0.0-0.6); EOSINOPHILS PERCENT AUTO 2.5 % (0.1-6.8); LYMPHOCYTES ABSOLUTE AUTO 1.8 x10-3/uL (0.5-4.5); LYMPHOCYTES PERCENT AUTO 14.9 % (15.8-45.3); MEAN CORPUSCULAR HEMOGLOBIN 25.8 pg (27.0-33.3); MEAN CORPUSCULAR HGB CONC 32.5 g/dL (28.7-35.3); MEAN CORPUSCULAR VOLUME 79.6 fL (80.8-98.7); MEAN PLATELET VOLUME 9.6 fL (6.7-11.0); MONOCYTES ABSOLUTE AUTO 0.6 x10-3/uL (0.0-1.2); MONOCYTES PERCENT AUTO 5.3 % (5.5-15.2); NEUTROPHILS ABSOLUTE AUTO 9.3 x10-3/uL (1.7-6.9); NEUTROPHILS PERCENT AUTO 76.9 % (40.3-71.8); PLATELET COUNT,PLT 277 x10(3)uL (117-477); RED BLOOD CELL COUNT 5.02 x10(6)uL (3.90-5.90); RED CELL DISTRIBUTION WIDTH 15.3 % (12.4-15.0); WHITE BLOOD CELL COUNT,WBC 12.2 x10-3/uL (3.2-10.1)
== END 2024-11-22 16:05 | disposition home or self-care (01) ==
LOC: FB.ED 14:35
DX: R53.1 Weakness (principal); I10 Essential (primary) hypertension; E78.00 Pure hypercholesterolemia, unspecified; K21.9 Gastro-esophageal reflux disease without esophagitis; E11.42 Type 2 diabetes mellitus with diabetic polyneuropathy; E03.9 Hypothyroidism, unspecified; E66.9 Obesity, unspecified; Z68.32 Body mass index [BMI] 32.0-32.9, adult; Z90.49 Acquired absence of other specified parts of digestive tract; Z79.4 Long term (current) use of insulin; Z79.890 Hormone replacement therapy; Z79.899 Other long term (current) drug therapy
CPT/HCPCS: 36415; 80053; 85025; 99284

== ENCOUNTER 2024-12-16 18:31 | Emergency (ER) | payer MEDICARE ==
[2024-12-16] MEDS ORDERED: Sodium Chloride 0.9% 10 ML Syringe FLUSH PRN (18:59)
[2024-12-16] MEDS: Meclizine 25 MG Tab PO ONE (19:14)
[2024-12-16] MEDS: Sodium Chloride 0.9% 1,000 ML IV SCH (19:14)
[2024-12-16 19:18] LABS: BASOPHILS ABSOLUTE AUTO 0.1 x10-3/uL (0.0-0.3); BASOPHILS PERCENT AUTO 0.8 % (0.3-3.8); EOSINOPHILS ABSOLUTE AUTO 0.9 x10-3/uL (0.0-0.6); EOSINOPHILS PERCENT AUTO 8.2 % (0.1-6.8); HEMATOCRIT 38.7 % (38.3-50.1); HEMOGLOBIN 12.9 g/dL (12.9-17.7); LYMPHOCYTES ABSOLUTE AUTO 2.1 x10-3/uL (0.5-4.5); LYMPHOCYTES PERCENT AUTO 19.1 % (15.8-45.3); MEAN CORPUSCULAR HEMOGLOBIN 25.9 pg (27.0-33.3); MEAN CORPUSCULAR HGB CONC 33.2 g/dL (28.7-35.3); MEAN CORPUSCULAR VOLUME 77.9 fL (80.8-98.7); MEAN PLATELET VOLUME 9.2 fL (6.7-11.0); MONOCYTES ABSOLUTE AUTO 0.7 x10-3/uL (0.0-1.2); MONOCYTES PERCENT AUTO 6.4 % (5.5-15.2); NEUTROPHILS ABSOLUTE AUTO 7.2 x10-3/uL (1.7-6.9); NEUTROPHILS PERCENT AUTO 65.5 % (40.3-71.8); PLATELET COUNT,PLT 272 x10(3)uL (117-477); RED BLOOD CELL COUNT 4.97 x10(6)uL (3.90-5.90); RED CELL DISTRIBUTION WIDTH 16.1 % (12.4-15.0); WHITE BLOOD CELL COUNT,WBC 11.1 x10-3/uL (3.2-10.1)
[2024-12-16 19:20] LABS: BLOOD UREA NITROGEN,BUN 12 mg/dL (7-18); CARBON DIOXIDE,CO2 29 mmol/L (21-32); CHLORIDE,CL 102 mmol/L (100-110); CREATININE 1.2 mg/dL (0.70-1.30); EST CRCL DRUG DOSING (CG) 79.04 mL/min; ESTIMATED GFR 73 mL/min (>60); GLUCOSE RANDOM 118 mg/dL (80-116); POTASSIUM,K 4.2 mmol/L (3.5-5.3); SODIUM,NA 141 mmol/L (135-145)
[2024-12-16 19:26] LABS: ALANINE AMINOTRANSFERASE,ALT 41 U/L (12-36); ALBUMIN 3.7 g/dL (3.5-5.2); ALKALINE PHOSPHATASE 103 IU/L (56-112); ASPARTATE AMNIOTRANSFERASE,AST 23 IU/L (5-25); BILIRUBIN TOTAL 0.5 mg/dL (0.1-1.3); PROTEIN TOTAL,TP 7.5 g/dL (6.0-8.0)
== END 2024-12-16 20:06 | disposition home or self-care (01) ==
LOC: FB.ED 18:31
DX: R55 Syncope and collapse (principal); A08.4 Viral intestinal infection, unspecified; E86.0 Dehydration; I10 Essential (primary) hypertension; E78.00 Pure hypercholesterolemia, unspecified; E03.9 Hypothyroidism, unspecified; E11.9 Type 2 diabetes mellitus without complications; E11.40 Type 2 diabetes mellitus with diabetic neuropathy, unspecified; Z79.899 Other long term (current) drug therapy; Z79.890 Hormone replacement therapy; Z79.4 Long term (current) use of insulin
CPT/HCPCS: 36415; 80053; 82947; 85025; 93005; 96360; 99284; A9270; J7030